=== PATIENT | male | born 1980 | race Hispanic/Latino ===

== ENCOUNTER 2025-09-25 12:44 | Emergency (ER) | payer SELFPAY ==
[~2025-09-25] VITALS: Ht 160 cm; Wt 86.2 kg
--- NOTE | 2025-09-25 12:51 | ERN ---
ED Note History of Present Illness Stated Complaint: THROAT PROBLEM Chief Complaint: Difficulty Swallowing Time Seen by MD: 12:46 Dictation: PATIENT IS A 45-YEAR-OLD COMING IN TODAY WITH COMPLAINTS OF A PAINFUL LEFT TONSIL WITH SORE THROAT AND PAINFUL SWALLOWING FOR THE LAST 2-3 DAYS. HE HAS ALSO HAD FEVER CHILLS. VOICE IS CLEAR ON EXAM NO PRIMARY CARE DOCTOR HAS NOT TAKEN ANYTHING PRIOR TO ARRIVAL FOR PAIN OR FEVER. Allergies: Coded Allergies: No Known Allergies (Unverified Allergy, Unknown, 09/25/25) Past Medical History RN Note Reviewed/Agreed w/PFSH: Yes Review of System Dictation CONSTITUTIONAL: NEGATIVE EXCEPT FOR HPI HEAD/FACE: NEGATIVE EXCEPT FOR HPI EENT: NEGATIVE EXCEPT FOR HPI SORE THROAT WITH PAINFUL LEFT TONSIL RESPIRATORY: NEGATIVE EXCEPT FOR HPI GASTROINTESTINAL/ABDOMINAL: NEGATIVE EXCEPT FOR HPI GENITOURINARY: NEGATIVE EXCEPT FOR HPI MUSCULOSKELETAL: NEGATIVE EXCEPT FOR HPI INTEGUMENTARY: NEGATIVE EXCEPT FOR HPI NEUROLOGICAL/PSYCH: NEGATIVE EXCEPT FOR HPI HEMATOLOGIC/LYMPHATIC: NEGATIVE EXCEPT FOR HPI ALL SYSTEMS NEGATIVE, EXCEPT NOTED ABOVE. 13 POINT REVIEW OF SYSTEMS ASSESSED AND ALL NEGATIVE EXCEPT FOR ABOVE. Initial Vital Sign VS Vital Signs Date Time Temp Pulse Resp B/P (MAP) Pulse Ox O2 Delivery O2 Flow Rate FiO2 09/25/25 12:46 98.4 119 20 159/102 99 Room Air 09/25/25 12:55 0 21 Physical Exam Dictation VITAL SIGNS REVIEWED GENERAL APPEARANCE: ALERT, ORIENTED X 3, MILD ACUTE DISTRESS, WELL DEVELOPED, NOURISHED. HEAD AND FACE: NON-TRAUMATIC. EYES: PERRL, PINK CONJUNCTIVAS, EYELID NO TRAUMA, ANTERIOR CHAMBER WITH ARCUS SENILIS. EARS: PINNAS INTACT AND NO SIGNS OF TRAUMA OR ERYTHEMA EAR CANALS CLEAR AND NO DISCHARGE TM NO ERYTHEMA NOSE: NO DISCHARGE, NO BLEEDING. OROPHARYNX: MOUTH NORMAL, TONGUE PINK, PHARYNX CLEAR,NO ERYTHEMA, TONSILS 3/4 BILATERALLY AND EXUDATIVE, NO ABSCESSES NOTED, MUCOUS MEMBRANE MOIST UVULA MIDLINE, VOICE IS CLEAR NECK: SUPPLE, NON-TENDER, NO THYROMEGALY, NO MASSES, NO JVD, NO BRUITS BREAST:DEFERRED CHEST:NO TENDERNESS, NO CREPITUS, NO PARADOXICAL MOVEMENT, NO RETRACTIONS LUNGS:CLEAR, WELL-VENTILATED, SYMMETRIC, NO RALES, NO WHEEZING, NO RHONCHI, NO STRIDOR, GOOD BREATH SOUNDS BILATERALLY HEART: REGULAR RATE, REGULAR RHYTHM, NO MURMUR, NO GALLOPS VASCULAR: NO PERIPHERAL EDEMA, ABDOMEN: SOFT, POSITIVE BOWEL SOUNDS, NONDISTENDED, NO GUARDING, NONTENDER, NO REBOUND, NO MASSES NO HEPATOMEGALY, NO SPLENOMEGALY, NO MEEHAN'S SIGN, NO HERNIAS. RECTAL: DEFERRED GENITAL: DEFERRED NEUROLOGICAL: NORMAL SPEECH, MOTOR FUNCTION INTACT, SENSORY FUNCTION INTACT MUSCULOSKELETAL: NECK NONTENDER, FULL RANGE OF MOTION, BACK NONTENDER, FULL RANGE OF MOTION, EXTREMITIES: NONTENDER, FULL RANGE OF MOTION SKIN: COLOR PINK, DRY, NO TURGOR, NO RASH, NO LACERATIONS, NO ABRASIONS, NO CO NTUSIONS. LYMPHATIC: DEFERRED Results (Laboratory/Radiology) Laboratory/Radiology Laboratory Tests Test 09/25/25 12:48 Group A Streptococcus Rapid positive (NEGATIVE) *A Labs Reviewed?: Yes ED Course ED Course Orders Procedure Category Date Status Time Rapid (Group A Strep) LAB 09/25/25 Complete 12:48 Saline Lock Iv CPOE 09/25/25 Transmitted 12:48 Ceftriaxone 2gm Vial PHA 09/25/25 Complete (Rocephin 2gm Inj) 13:00 Dexamethasone 4mg/Ml PHA 09/25/25 Complete 1ml Vial (Dexametha 13:00 Ketorolac PHA 09/25/25 Complete Tromethamine 30mg/Ml 13:00 Current Medications Medications (Trade) Dose Ordered Sig/Otto Route PRN Reason Start Time Stop Time Status Last Admin Dose Admin Ceftriaxone Sodium (Rocephin 2gm Inj) 2 gm ONCE ONCE IVPB 09/25/25 13:00 09/25/25 13:01 DC 09/25/25 13:16 Dexamethasone Sodium Phosphate (dexaMETHasone 4MG/ML 1ML VIAL) 8 mg ONCE ONCE IVP 09/25/25 13:00 09/25/25 13:01 DC 09/25/25 13:16 Ketorolac Tromethamine (toRADol) 30 mg ONCE ONCE IVP 09/25/25 13:00 09/25/25 13:01 DC 09/25/25 13:16 Vital Signs Date Time Temp Pulse Resp B/P (MAP) Pulse Ox O2 Delivery O2 Flow Rate FiO2 09/25/25 12:55 98.4 92 18 142/94 98 Room Air* 0 21 09/25/25 12:46 98.4 119 20 159/102 99 Room Air 1402/PATIENT HAS POSITIVE STREP THROAT ON SWAB. DISCHARGED HOME AFTER RECEIVING ROCEPHIN DECADRON AND TORADOL. Medical Decision Making MDM MEDICAL DECISION-MAKING BASED ON STREP PHARYNGITIS SWAB POSITIVE SWAB PATIENT RECEIVED ROCEPHIN 2 G, DECADRON EIGHT, TORADOL 30 DISCHARGED HOME ON AUGMENTIN 875 B.I.D. FOR SEVEN DAYS MEDROL DOSEPAK LIST OF PRIMARY CARE DOCTOR DX & DISP Disposition: Discharge Departure Impression: Primary Impression: Acute streptococcal tonsillitis Condition: Stable Scripts Methylprednisolone (Medrol) 4 Mg Tab.ds.pk 1 TAB PO AD for 6 Days, #21 TAB 0 Refills 6 on day 1 then reduce by one tablet daily until gone Prov: TIMOTHY HARRISON 09/25/25 Amoxicillin/Potassium Clav (Amox Tr-K Clv 875-125 mg Tab) 875 Mg-125 Mg Tablet 1 EACH PO BID for 7 Days, #14 TAB 0 Refills Prov: TIMOTHY HARRISON 09/25/25 Additional Instructions: FOLLOW-UP WITH PRIMARY CARE PROVIDER IN 1 TO 2 DAYS. TAKE MEDICATIONS DIRECTED HERE IN THE EMERGENCY ROOM. OKAY TO CONTINUE HOME MEDICATIONS UNLESS OTHERWISE DISCUSSED DURING YOUR VISIT IN THE EMERGENCY ROOM TODAY. RETURN TO YOUR NEAREST EMERGENCY ROOM IF SYMPTOMS WORSEN OR IF THERE IS NO IMPROVEMENT. CALL 911 IF YOU NEED IMMEDIATE ASSISTANCE. TAKE TYLENOL OR MOTRIN [id number] NEEDED AND IF NO CONTRAINDICATIONS ARE PRESENT. INCREASE ORAL HYDRATION. A WOUND CULTURE OR URINE CULTURE WAS ORDERED HERE IN THE EMERGENCY ROOM DEPARTMENT PLEASE FOLLOW-UP WITH PRIMARY CARE PROVIDER AND ADVISE THEM TO GET REPEAT PORTS FROM OUR FACILITY. IF YOU HAD ANY ANAHY WRAP/SPLINTS THAT WERE APPLIED HERE, PLEASE DO NOT REMOVE THEM UNTIL YOU SEE YOUR PRIMARY CARE OR SPECIALTY. TAKE AUGMENTIN DIRECTED UNTIL GONE., INCREASE YOUR FLUID INTAKE. , TAKE MEDROL DOSEPAK DIRECTED. NO WORK UNTIL 09/28/2025 Referrals: SELF,REFERRAL (PCP) Time of Disposition: 14:08 I have reviewed the case, and I agree with, Diagnosis and Plan TIMOTHY HARRISON Sep 25, 2025 12:51
[2025-09-25] MEDS ORDERED: METH4TAB3 PO (14:08)
[2025-09-25] MEDS ORDERED: AMOX1TAB16 PO (14:08)
[2025-09-25 14:10] VITALS: BP 137/82; PULSE 88; RESP 18; TEMP 98.4; O2SAT 99
== END 2025-09-25 14:12 | disposition home or self-care (01) ==
LOC: EDH 12:44
DX: J03.00 Acute streptococcal tonsillitis, unspecified (principal); R13.10 Dysphagia, unspecified
CPT/HCPCS: 99284; 96374; 96375; 87880; J1100; J1885; J0696